=== PATIENT | male | born 1950 | race Caucasian/White ===

== ENCOUNTER 2020-11-03 13:09 | Emergency (ER) | payer MEDICARE, OTHER ==
[~2020-11-03] VITALS: Ht 180 cm; Wt 79.3 kg
--- NOTE | 2020-11-03 13:42 | ED General ---
General Chief Complaint: Cough/Cold/Flu Symptoms Stated Complaint: COVID POSITIVE/SYMPTOMS WORSE Source of Information: Patient Exam Limitations: No Limitations History of Present Illness Date Seen by Provider: November 03, 2020 Time Seen by Provider: 13:32 Initial Comments This is a well-appearing 69-year-old male who presents to the ER with complaints of severe muscle aches. States he was diagnosed with COVID-19 1 week ago and has not been able to get his muscle aches under control. Denies cough, shortness of breath, chest pain, fever, abdominal pain, nausea, vomiting, diarrhea. States he took Tylenol which has not improved his symptoms. Allergies and Home Medications Allergies Coded Allergies: No Known Drug Allergies (Unverified , 11/03/20) Home Medications Hydrocodone/Acetaminophen 1 Each Tablet, 1 TAB PO HS PRN for PAIN-MODERATE (5-7) Prescribed by: ERICA HENDERSON on 11/03/20 1422 Patient Home Medication List Home Medication List Reviewed: Yes Review of Systems Review of Systems Constitutional: see HPI EENTM: no symptoms reported Respiratory: no symptoms reported Cardiovascular: no symptoms reported Gastrointestinal: no symptoms reported Genitourinary: no symptoms reported Musculoskeletal: see HPI Skin: no symptoms reported Psychiatric/Neurological: No Symptoms Reported Hematologic/Lymphatic: No Symptoms Reported Immunological/Allergic: no symptoms reported Physical Exam Vital Signs Vital Signs - First Documented 11/03/20 13:17 Temp 36.9 Pulse 75 Resp 14 B/P (MAP) 150/88 (108) Pulse Ox 99 O2 Delivery Room Air Capillary Refill : Height, Weight, BMI Height: '" Weight: lbs. oz. kg; BMI Method: General Appearance: No Apparent Distress, WD/WN Eyes: Bilateral Eye Normal Inspection, Bilateral Eye PERRL, Bilateral Eye EOMI HEENT: PERRL/EOMI, Normal ENT Inspection, Pharynx Normal, Moist Mucous Membranes Neck: Full Range of Motion, Normal Inspection, Non Tender, Supple Respiratory: Chest Non Tender, Lungs Clear, Normal Breath Sounds, No Accessory Muscle Use, No Respiratory Distress Cardiovascular: Regular Rate, Rhythm, No Edema, No Murmur, Normal Peripheral Pulses Gastrointestinal: Normal Bowel Sounds, Non Tender, Soft Back: Normal Inspection Extremity: Normal Capillary Refill, Normal Range of Motion Neurologic/Psychiatric: Alert, Oriented x3, No Motor/Sensory Deficits, Normal Mood/Affect Skin: Normal Color, Warm/Dry Progress/Results/Core Measures Suspected Sepsis SIRS Temperature: Pulse: Respiratory Rate: Laboratory Tests 11/03/20 13:35: White Blood Count 7.5 Blood Pressure / Mean: Laboratory Tests 11/03/20 13:35: Creatinine 0.79, Platelet Count 376, Total Bilirubin 0.8 Results/Orders Lab Results Laboratory Tests Test 11/03/20 13:35 Range/Units White Blood Count 7.5 4.3-11.0 10^3/uL Red Blood Count 5.26 4.30-5.52 10^6/uL Hemoglobin 14.3 13.3-17.7 g/dL Hematocrit 42 40-54 % Mean Corpuscular Volume 81 80-99 fL Mean Corpuscular Hemoglobin 27 25-34 pg Mean Corpuscular Hemoglobin Concent 34 32-36 g/dL Red Cell Distribution Width 12.7 10.0-14.5 % Platelet Count 376 130-400 10^3/uL Mean Platelet Volume 9.7 9.0-12.2 fL Immature Granulocyte % (Auto) 0 % Neutrophils (%) (Auto) 68 42-75 % Lymphocytes (%) (Auto) 21 12-44 % Monocytes (%) (Auto) 10 0-12 % Eosinophils (%) (Auto) 1 0-10 % Basophils (%) (Auto) 0 0-10 % Neutrophils # (Auto) 5.1 1.8-7.8 10^3/uL Lymphocytes # (Auto) 1.6 1.0-4.0 10^3/uL Monocytes # (Auto) 0.8 0.0-1.0 10^3/uL Eosinophils # (Auto) 0.0 0.0-0.3 10^3/uL Basophils # (Auto) 0.0 0.0-0.1 10^3/uL Immature Granulocyte # (Auto) 0.0 0.0-0.1 10^3/uL Sodium Level 137 135-145 MMOL/L Potassium Level 3.6 3.6-5.0 MMOL/L Chloride Level 102 98-107 MMOL/L Carbon Dioxide Level 20 L 21-32 MMOL/L Anion Gap 15 H 5-14 MMOL/L Blood Urea Nitrogen 13 7-18 MG/DL Creatinine 0.79 0.60-1.30 MG/DL Estimat Glomerular Filtration Rate > 60 BUN/Creatinine Ratio 16 Glucose Level 118 H 70-105 MG/DL Calcium Level 9.4 8.5-10.1 MG/DL Corrected Calcium 9.2 8.5-10.1 MG/DL Total Bilirubin 0.8 0.1-1.0 MG/DL Aspartate Amino Transf (AST/SGOT) 23 5-34 U/L Alanine Aminotransferase (ALT/SGPT) 23 0-55 U/L Alkaline Phosphatase 71 40-136 U/L Total Protein 7.9 6.4-8.2 GM/DL Albumin 4.3 3.2-4.5 GM/DL My Orders Orders - ERICA HENDERSON APRN Ketorolac Injection (Toradol Injection) (11/03/20 13:45) Cbc With Automated Diff (11/03/20 13:41) Comprehensive Metabolic Panel (11/03/20 13:41) Ed Iv/Invasive Line Start (11/03/20 13:41) Medications Given in ED Current Medications Medications Dose Ordered Sig/[place] Route Start Time Stop Time Status Last Admin Dose Admin Ketorolac Tromethamine 30 mg ONCE ONCE IVP 11/03/20 13:45 11/03/20 13:46 DC 11/03/20 13:47 30 MG Vital Signs/I&O 11/03/20 13:17 Temp 36.9 Pulse 75 Resp 14 B/P (MAP) 150/88 (108) Pulse Ox 99 O2 Delivery Room Air Capillary Refill : Progress Note : Progress Note Patient examined in no acute distress. We will try Toradol 30 mg IV push for pain. Orders placed for basic labs to evaluate electrolytes. Labs reviewed and are unremarkable. Reported minimal improvement with Toradol. States the Tylenol ibuprofen does not help him, and makes it difficult for him to sleep at night. Will give Rx for hydrocodone 5/325 mg at bedtime only. He is to continue OTC Tylenol and ibuprofen throughout the day. Reviewed discharge plan of care and he is agreeable with plan. Departure Impression Primary Impression: COVID-19 Additional Impression: Myalgia Disposition: 01 HOME, SELF-CARE Condition: Stable/Unchanged Departure-Patient Inst. Decision time for Depature: 14:19 Referrals: NO,LOCAL PHYSICIAN (PCP/Family) Primary Care Physician Patient Instructions: COVID-19 (DC) Add. Discharge Instructions: Plan: 1. Continue to Isolate at home until you are released by the health department. 2. May use Ibuprofen 600mg by mouth every 8 hours as needed for pain or Tylenol 1000mg by mouth every 8 hours as needed for pain. 3. Use Hydrocodone as needed for breakthrough pain at bedtime. 4. Follow up with your doctor for persistent problems. 5. Return for any new or worsening symptoms. All discharge instructions reviewed with patient and/or family. Voiced understanding. Scripts Hydrocodone/Acetaminophen (Hydrocodone-Acetamin 5-325 mg) 1 Each Tablet 1 TAB PO HS PRN for PAIN-MODERATE (5-7) for 5 Days, #5 TAB 0 Refills Prov: ERICA HENDERSON SCRUB TECH 11/03/20 ERICA HENDERSON SCRUB TECH November 03, 2020 13:42
[2020-11-03] MEDS ORDERED: KETOROLAC 30 MG/ML VIAL IVP ONE (13:45)
[2020-11-03 13:47] LABS: BASOPHILS % (AUTO) 0 % (0-10); EOSINOPHILS % (AUTO) 1 % (0-10); HEMATOCRIT 42 % (40-54); HEMOGLOBIN 14.3 g/dL (13.3-17.7); LYMPHOCYTES # (AUTO) 1.6 10^3/uL (1.0-4.0); LYMPHOCYTES % (AUTO) 21 % (12-44); MEAN CORPUSCULAR HEMOGLOBIN 27 pg (25-34); MEAN CORPUSCULAR HGB CONC 34 g/dL (32-36); MEAN CORPUSCULAR VOLUME 81 fL (80-99); MEAN PLATELET VOLUME 9.7 fL (9.0-12.2); MONOCYTES # (AUTO) 0.8 10^3/uL (0.0-1.0); MONOCYTES % (AUTO) 10 % (0-12); NEUTROPHILS # (AUTO) 5.1 10^3/uL (1.8-7.8); NEUTROPHILS % (AUTO) 68 % (42-75); PLATELET COUNT 376 10^3/uL (130-400); WHITE BLOOD COUNT 7.5 10^3/uL (4.3-11.0)
[2020-11-03 13:53] LABS: ALBUMIN 4.3 GM/DL (3.2-4.5); CHLORIDE 102 MMOL/L (98-107); POTASSIUM 3.6 MMOL/L (3.6-5.0); SODIUM 137 MMOL/L (135-145)
[2020-11-03 13:54] LABS: CALCIUM 9.4 MG/DL (8.5-10.1)
[2020-11-03 13:55] LABS: GLUCOSE 118 MG/DL (70-105)
[2020-11-03 13:56] LABS: TOTAL PROTEIN 7.9 GM/DL (6.4-8.2)
[2020-11-03 13:57] LABS: BILIRUBIN,TOTAL 0.8 MG/DL (0.1-1.0); CARBON DIOXIDE 20 MMOL/L (21-32)
[2020-11-03 13:59] LABS: ALKALINE PHOSPHATASE 71 U/L (40-136); CREATININE SERUM 0.79 MG/DL (0.60-1.30); GFR ESTIMATED > 60
[2020-11-03 14:00] LABS: BUN/CREATININE RATIO 16
[2020-11-03 14:02] LABS: ALANINE AMINOTRANSFERASE 23 U/L (0-55)
[2020-11-03] MEDS ORDERED: ACHD5005 PO (14:22)
[2020-11-03 14:40] VITALS: BP 143/89
== END 2020-11-03 14:40 | disposition home or self-care (01) ==
LOC: ER 13:12
DX: U07.1 COVID-19 (principal); M79.10 Myalgia, unspecified site
CPT/HCPCS: 36415; 80053; 85025